=== PATIENT | female | born 1985 | race Caucasian/White ===

== ENCOUNTER 2017-02-22 17:09 | Emergency (ER) | payer BC ==
--- NOTE | 2017-02-22 17:52 | ED ---
Lower Extremity Injury HPI - General Chief Complaint: Extremity Injury, Lower Stated Complaint: foot pain Time Seen by Provider: 02/22/17 17:27 Source: patient, RN notes reviewed, old records reviewed Mode of arrival: ambulatory Limitations: no limitations - History of Present Illness Initial Comments: This is a pleasant 31-year-old female presents emergency Department with right ankle pain. Patient reports that she was playing with her daughters and using a skid that when she landed on her ankle wrong and heard a popping sensation. Patient reports that she's had difficulty bearing weight over her foot since then. Patient states that she's never had any previous injuries to the ankle. She reports that she has full sensation in her feet and toes. Denies any difficulty with moving her toes. She reports pain and with flexion and extension of the ankle.Patient denies any recent fever, chills, shortness of breath, chest pain, back pain, abdominal pain, nausea vomiting, numbness or tingling, dysuria or hematuria, constipation or diarrhea, headaches or visual changes, or any other current symptoms - Related Data Previous Rx's Medication Instructions Recorded traMADol HCl [Ultram] 50 mg PO Q6H PRN #12 tab 02/22/17 Allergies Allergy/AdvReac Type Severity Reaction Status Date / Time ibuprofen Allergy Rash/Hives Verified 02/22/17 17:24 Morpholine Analogues Allergy Anaphylaxis Verified 02/22/17 17:24 Review of Systems ROS Statement: Those systems with pertinent positive or pertinent negative responses have been documented in the HPI. ROS Other: All systems not noted in ROS Statement are negative. Past Medical History Past Medical History: No Reported History History of Any Multi-Drug Resistant Organisms: None Reported, MRSA Date of last positivie culture/infection: 05/04/2015 MDRO Source:: LEFT THIGH Past Surgical History: Section Smoking Status: Never smoker Past Alcohol Use History: None Reported Past Drug Use History: None Reported General Exam - General Exam Comments Initial Comments: Is a pleasant 31-year-old female. No acute distress. Limitations: no limitations General appearance: alert, in no apparent distress Head exam: Present: atraumatic, normocephalic, normal inspection Eye exam: Present: normal appearance, PERRL, EOMI. Absent: scleral icterus, conjunctival injection, periorbital swelling ENT exam: Present: normal exam, mucous membranes moist Neck exam: Present: normal inspection. Absent: tenderness, meningismus, lymphadenopathy Respiratory exam: Present: normal lung sounds bilaterally. Absent: respiratory distress, wheezes, rales, rhonchi, stridor Cardiovascular Exam: Present: regular rate, normal rhythm, normal heart sounds. Absent: systolic murmur, diastolic murmur, rubs, gallop, clicks GI/Abdominal exam: Present: soft, normal bowel sounds. Absent: distended, tenderness, guarding, rebound, rigid Extremities exam: Present: normal inspection, full ROM, normal capillary refill. Absent: tenderness, pedal edema, joint swelling, calf tenderness Right Knee exam: Present: normal inspection, full ROM Lower Leg exam: Present: normal inspection, full ROM Ankle exam: Present: normal inspection, tenderness, swelling (Pain and tenderness and swelling over the lateral malleolus of the ankle.). Absent: full ROM Foot/Toe exam: Present: normal inspection, full ROM Neurovascular tendon exam: Present: no vascular compromise Gait: observed and limited by pain Back exam: Present: normal inspection Neurological exam: Present: alert, oriented X3, CN II-XII intact Psychiatric exam: Present: normal affect, normal mood Skin exam: Present: warm, dry, intact, normal color. Absent: rash Course Vital Signs 02/22/17 02/22/17 17:21 18:25 Temperature 97.9 F 97.5 F L Pulse Rate 95 82 Respiratory 18 20 Rate Blood Pressure 126/84 126/78 O2 Sat by Pulse 100 98 Oximetry Procedures - Orthopedic Splinting/Casting Injury #1 Side: right Lower Extremity Injury Location: ankle Lower Extremity Immobilizer: AirCast, Barrie wrap Medical Decision Making - Medical Decision Making This is a pleasant 31-year-old female chief complaint of right ankle pain after injuring it while playing with her daughters. She was using a skipped that and landed on her ankle wrong. X-rays were reviewed and show significant soft tissue swelling, no evidence of fracture. Patient is placed in an Barrie wrap and ankle stirrup splint. Patient will be discharged with a prescription for crutches and orthopedic referral. Discussed taking Tylenol for pain as she is ALLERGIC to NSAIDs. We will also write her for a few tramadol for pain is severe. Discussed nonweight bearing for the next 2-3 days and follow-up with orthopedic after resting, elevating and icing her ankle. Patient agrees to treatment plan will comply. Return parameters were discussed. - Radiology Data Radiology results: report reviewed X-rays reviewed and negative for any acute process or fracture. Disposition Clinical Impression: Right ankle sprain Disposition: HOME SELF-CARE Condition: Good Instructions: Ankle Sprain (ED) Additional Instructions: Patient advised to take Tylenol and/or prescribed pain medication for pain. Use crutches and be nonweightbearing for the next week. Practice flexing and extending exercises while resting. Patient should keep the ankle up and ice it frequently. Follow-up with orthopedic within the next few days. Prescriptions: traMADol HCl [Ultram] 50 mg PO Q6H PRN #12 tab PRN Reason: Pain Referrals: None,Stated [Primary Care Provider] - 1-2 days Harlan Villafana PAC [PHYSICIAN SCENIC ARTIST] - 1-2 days Pete Miguel MD [Medical Doctor] - 1-2 days Time of Disposition: 18:16
--- NOTE | 2017-02-22 17:53 | XR ---
EXAMINATION TYPE: XR foot limited RT DATE OF EXAM: 02/22/2017 5:45 PM COMPARISON: NONE HISTORY: Pain TECHNIQUE: 2 views FINDINGS: I see no fracture nor dislocation. Metatarsals are intact. Joint spaces are normal. IMPRESSION: Negative right foot exam.
--- NOTE | 2017-02-22 17:53 | XR ---
EXAMINATION TYPE: XR ankle complete RT DATE OF EXAM: 02/22/2017 5:45 PM COMPARISON: NONE HISTORY: Pain TECHNIQUE: 3 views FINDINGS: There is soft tissue swelling over the lateral malleolus. Ankle mortise is anatomic. I see no fracture. IMPRESSION: Lateral soft tissue swelling. No fracture seen.
[2017-02-22 18:34] VITALS: BP 126/78; PULSE 82; RESP 20; TEMP 97.5
== END 2017-02-22 18:25 | disposition home or self-care (01) ==
LOC: EC 17:09
DX: S93.401A Sprain of unspecified ligament of right ankle, initial encounter (principal); Z88.6 Allergy status to analgesic agent; Z91.048 Other nonmedicinal substance allergy status; X50.9XXA Other and unspecified overexertion or strenuous movements or postures, initial encounter; Y93.6A Activity, physical games generally associated with school recess, summer camp and children
CPT/HCPCS: 73610; 73620; 99284; L4350